=== PATIENT | female | born 1960 | race African-American/Black ===

== ENCOUNTER → 2016-10-10 | Outpatient (CLI) | payer MEDICARE, BC ==
[~2016-10-10] MED LIST: ASPI-482 PO; HYDR-2666 PO; INSU100C4 SQ; INSU100I13 SQ; METF10002 PO; PREG75CA PO; [UNRECOGNIZED DRUG - CODE] IJ
--- NOTE | 2016-10-10 16:39 | KCIC ---
CT lumbar spine without contrast Indication: Low back pain and left lower extremity radiculopathy. Axial imaging through the lumbar spine was performed without contrast. Sagittal and coronal reformations were also performed. The overall quality of the study is severely compromised due to patient's large body habitus. Curvature and alignment appears normal. The vertebral body heights appear to be well-maintained. No acute compression fracture is identified. The integrity of the central canal is difficult to assess on this exam. The bony canal appears to be patent. The disc spaces are fairly well maintained. Facets are unremarkable. Paraspinous tissues are unremarkable. Impression: Limited study but no gross abnormality is detected. Electronically signed by: Erwin Linda MD (Oct 10, 2016 16:37:18)
== END | disposition home or self-care (01) ==
LOC: KCIC CT 15:23
PROVIDERS: ATTEND Internal Medicine
DX: M54.42 Lumbago with sciatica, left side (principal); M54.16 Radiculopathy, lumbar region
CPT/HCPCS: 72131